=== PATIENT | male | born 1975 ===

== ENCOUNTER 2025-03-02 13:44 | Emergency (ER) | payer MEDICARE, MEDICAID ==
[2025-03-02 14:34] LABS: APPEARANCE,URINE CLEAR (CLEAR); GLUCOSE,URINE NEGATIVE (NEGATIVE); OCCULT BLOOD,URINE NEGATIVE (NEGATIVE)
[2025-03-02 14:38] LABS: AMPHETAMINES SCREEN, URINE POSITIVE (NEGATIVE); METHADONE SCREEN, URINE NEGATIVE (NEGATIVE); METHAMPHETAMINES SCREEN, URINE POSITIVE (NEGATIVE); OXYCODONE SCREEN,URINE NEGATIVE (NEGATIVE); SQUAMOUS EPITHELIAL CELLS,UR OCCASIONAL /HPF; THC SCREEN,URINE 50 NG/ML POSITIVE (NEGATIVE)
[2025-03-02] MEDS: Flumazenil 0.1 MG/ML 5 ML MDV IVPUSH SCH ×2 (14:45→16:04)
[2025-03-02 14:47] LABS: A/G RATIO 1.0 (0.8-2.0); ALANINE AMINOTRANSFERASE,ALT 18 U/L (12-78); ASPARTATE AMNIOTRANSFERASE,AST 20 U/L (15-37); BILIRUBIN TOTAL 0.4 mg/dL (0.0-1.0); BLOOD UREA NITROGEN,BUN 24 mg/dL (8-26); CARBON DIOXIDE,CO2 26.6 mmol/L (21.0-32.0); CHLORIDE,CL 106 mmol/L (98-107); CREATININE 0.96 mg/dL (0.70-1.30); EST CRCL DRUG DOSING (CG) 105.19 mL/min; ESTIMATED GFR 97 mL/min (>60); GLUCOSE RANDOM 95 mg/dL (74-100); POTASSIUM,K 4.4 mmol/L (3.5-5.1); PROTEIN TOTAL,TP 5.9 g/dL (6.4-8.2); SODIUM,NA 141 mmol/L (136-145)
[2025-03-02 14:52] LABS: BASOPHILS ABSOLUTE AUTO 0.03 K/uL (0.02-0.10); BASOPHILS PERCENT AUTO 0.3 % (0.0-0.5); EOSINOPHILS ABSOLUTE AUTO 0.12 K/uL (0.04-0.40); EOSINOPHILS PERCENT AUTO 1.1 % (1.0-5.0); LYMPHOCYTES ABSOLUTE AUTO 1.59 K/uL (1.50-4.00); LYMPHOCYTES PERCENT AUTO 13.9 % (20.0-40.0); MEAN PLATELET VOLUME 11.6 fL (6.0-10.0); MONOCYTES ABSOLUTE AUTO 0.71 K/uL (0.20-0.80); MONOCYTES PERCENT AUTO 6.2 % (3.0-10.0); NEUTROPHILS ABSOLUTE AUTO 8.95 K/uL (2.00-7.50); NEUTROPHILS PERCENT AUTO 78.5 % (45.0-70.0); PLATELET COUNT,PLT 251 K/uL (150-400); RED BLOOD CELL COUNT 3.83 M/uL (4.50-6.50); RED CELL DISTRIBUTION WIDTH 14.6 % (11.0-16.0); WHITE BLOOD CELL COUNT,WBC 11.4 K/uL (4.0-11.0)
[2025-03-02 14:54] LABS: BASE EXCESS VENOUS -3.3 mm/L (-2-3); BICARBONATE,VENOUS 22.4 mmol/L (23.0-28.0); PCO2 VENOUS 41.0 mm/Hg (41-51); PH,VENOUS 7.35 (7.31-7.41)
[2025-03-02] MEDS ORDERED: Sodium Chloride 0.9% 10 ML Syringe FLUSH PRN (14:54)
[2025-03-02 14:56] LABS: ETHANOL BLOOD MEDICAL < 3.0 mg/dL (<3.0)
[2025-03-04 22:41] LABS: TSH W/RFLX FREE T4 1.54 mU/L (0.27-4.20)
== END 2025-03-02 16:25 ==
LOC: LB.ED 13:44
DX: T40.5X2A Poisoning by cocaine, intentional self-harm, initial encounter (principal); Z88.2 Allergy status to sulfonamides
CPT/HCPCS: 36415; 80053; 80143; 80179; 80307; 81001; 82803; 84443; 85025; 93005; 96374; 96375; 99285; A0425; A0428; J2312; J3490